=== PATIENT | female | born 1990 | race Caucasian/White ===

== ENCOUNTER 2020-08-24 12:12 | Emergency (ER) | payer BC, OTHER ==
[2020-08-24] MEDS ORDERED: Boostrix 0.5 ML (Tdap) VIAL ONE (12:53)
== END 2020-08-24 13:26 | disposition home or self-care (01) ==
LOC: CSHERS 12:12
DX: S61.211A Laceration without foreign body of left index finger without damage to nail, initial encounter (principal); Z23 Encounter for immunization; W26.8XXA Contact with other sharp object(s), not elsewhere classified, initial encounter
CPT/HCPCS: 12001; 90471; 90715